=== PATIENT | male | born 1955 | race Caucasian/White ===

== ENCOUNTER → 2020-08-20 09:45 | Outpatient (BNVA) | payer SELFPAY | PROVIDERS: PCP Nurse Practitioner Family; Visit Provider Internal Medicine | DX: Z02.79 Encounter for issue of other medical certificate (principal) ==

== ENCOUNTER 2020-11-18 10:44 | Outpatient (REF) | payer OTHER, SELFPAY ==
[2020-11-18 12:31] LABS: Blood Urea Nitrogen 13 mg/dL (9-16); Estimated Glomerular Filt Rate > 60
== END 2020-11-18 10:45 | disposition home or self-care (01) ==
LOC: HO.LAB 10:44
PROVIDERS: Psychiatry & Neurology Neurology; PCP Internal Medicine; Visit Provider Internal Medicine
DX: I63.9 Cerebral infarction, unspecified (principal)
CPT/HCPCS: 36415; 82565; 84520

== ENCOUNTER 2020-12-09 07:52 | Outpatient (REF) | payer OTHER, SELFPAY ==
--- NOTE | ~2020-12-09 | CT_ITS ---
EXAMINATION: CT ANGIOGRAM NECK WITH CONTRAST CT ANGIOGRAM BRAIN WITH CONTRAST CLINICAL INFORMATION: Cerebral infarct. COMPARISON: None. TECHNIQUE: Test bolus sequences followed by intravenous administration 70 mL of Omnipaque 350. Helical imaging was performed in the axial plane from the thoracic inlet to the skull vertex. Delayed postcontrast imaging of the head was also performed. The data was processed at the senior cytotechnologist workstation for generation of MIP sequences. Angled MIPs and volume rendered reformatted images were also generated at an offline 3D workstation. Stenoses are assessed in accordance with NASCET criteria unless otherwise indicated. This CT examination was performed using dose optimization techniques as appropriate, variously including the following: *Automated exposure control *Adjustment of mA and/or kV according to patient size (this includes techniques or standardized protocols for targeted exams where dose is matched to indication/reason for exam; i.e. extremities or head) *Use of iterative reconstruction technique DLP: 2642 mGy-cm FINDINGS: Head CT: There is no intracranial hemorrhage, large acute infarction, or mass lesion. The ventricles are normal in size and configuration without evidence of hydrocephalus. No abnormal enhancement is seen on the postcontrast images. There is minimal paranasal sinus mucosal thickening. Neck CTA: There is a normal aortic arch with no significant stenosis of the great vessel origins. The common and internal carotid arteries are normal in course and caliber. Both vertebral arteries are widely patent throughout their extracranial cervical course. Head CTA: No intracranial aneurysm is seen. The intracranial internal carotid arteries appear normal. The anterior cerebral artery, anterior communicating artery, and middle cerebral arteries appear normal. The intradural vertebral arteries and basilar artery appear normal. The posterior cerebral arteries appear normal. Non-vascular findings: Prominent mandibular moni are noted. No there is no consolidation in the upper lungs. Mild multilevel degenerative changes are seen within the spine. CT/CT angio head neck IMPRESSION: CT head: No intracranial hemorrhage or large acute infarction. CTA neck: No hemodynamically significant stenosis in the major arteries of the neck. CTA head: No large vessel occlusion or significant stenosis within the intracranial circulation.
[2020-12-09] MEDS: iohexoL 350 MG/ML 100 ML INFUS..BTL 70 ML IV (09:23)
== END 2020-12-09 07:53 | disposition home or self-care (01) ==
LOC: HO.CT 07:52
PROVIDERS: Visit Provider Psychiatry & Neurology Neurology
DX: Z86.73 Personal history of transient ischemic attack (TIA), and cerebral infarction without residual deficits (principal)
CPT/HCPCS: 70496; 70498; Q9967

== ENCOUNTER → 2020-12-17 12:45 | Outpatient (REF) | payer OTHER, SELFPAY ==
--- NOTE | 2020-12-17 12:54 | ECG_ITS ---
Hook-up date: 2020-12-17 13:09:00 Duration: 47:59:00 Test Indications: cerebral infarct Medications: 331035 QRS complexes 300 Ventricular ectopics which represent <1 % of total QRS comp. 320 Supraventricular ectopics which represent <1 % of total QRS comp. * Paced QRS complexs which represent % of total QRS comp. VENTRICULAR ECTOPY 293 Isolated 0 Bigeminal Cycles 0 Couplets 1 Runs 7 Beats in Runs 7 Beats LONGEST at 128 BPM at 15:31:03 2020-12-18 7 Beats FASTEST at 128 BPM at 15:31:03 2020-12-18 SUPRAVENTRICULAR ECTOPY 315 Isolated 0 Couplets 2 Runs 6 Beats in Runs 3 Beats LONGEST at 89 BPM at 16:35:43 2020-12-18 3 Beats FASTEST at 89 BPM at 16:35:43 2020-12-18 HEART RATES 83 MIN at 12:49:52 2020-12-19 84 AVG 130 MAX at 13:29:12 2020-12-17 LONGEST RR 0.9520 secs at 00:10:54 2020-12-19 S-T LEVELS Channel 1 - 128 mm at 13:09:00 2020-12-17 - 128 mm at 13:09:00 2020-12-17 Channel 2 - 128 mm at 13:09:00 2020-12-17 - 128 mm at 13:09:00 2020-12-17 Channel 3 - 128 mm at 03:22:81 -- - 128 mm at 03:22:81 Basic rhythm Normal sinus rhythm No long pause or profound bradycardia Occasional Premature atrial complexes Occasional Premature ventricular complexes One 7 beat run of NSVT at 128 bpm Patient reported symptoms correlated with NSR Referred By: Gillian Cabrera Overread By: KIKE LONDON MD
== END ==
LOC: HO.CARD 12:45
PROVIDERS: PCP Internal Medicine; Visit Provider Internal Medicine
DX: I63.9 Cerebral infarction, unspecified (principal)
CPT/HCPCS: 93225; 93226

== ENCOUNTER → 2021-01-10 10:01 | Outpatient (REF) | payer OTHER, SELFPAY ==
--- NOTE | 2021-01-10 10:30 | CA_ITS ---
Transthoracic Echocardiogram Patient (Last, First, Middle): Good Mednia P Gender: Male Date of : 1955 Age: 65 Procedure Date: 01/10/2021 Procedure Type: Transthoracic Echocardiogram Location: OP Height: 167.64 cm Weight: 70.31 kg BSA: 1.79 m2 Heart Rate: bpm BP: 110 / 70 mmHg Helper Driver: DSGordo Referring MD: Roberto Cabrera MD Symptoms: I63.9 CEREBRAL INFARCT Study Quality: Fair ECG Rhythm: Sinus Conclusions: - The left ventricular systolic function is normal. The calculated ejection fraction is 64% by biplane method. - There is mild aortic valve stenosis. Cannot exclude bicuspid morphology. Findings Left Ventricle Normal left ventricular cavity size. The left ventricular systolic function is normal. The calculated ejection fraction is 64% by biplane method. There is no evidence of regional wall motion abnormalities. E/E prime ratio is between 8 and 15 consistent with indeterminate filling pressures. Evidence suggests grade I (mild) diastolic dysfunction. There is mild septal asymmetric hypertrophy. Right Ventricle Normal right ventricular cavity size and systolic function. Atria Both atria are normal in size. Aortic Valve There is mild calcification of the aortic valve. There is mild aortic valve stenosis. The peak aortic velocity is 2.29 m/s with a calculated peak gradient of 21 mmHg. The mean gradient is 14 mmHg. The aortic valve area is 1.43 cm2. There is no aortic valve regurgitation. Cannot exclude bicuspid morphology. Mitral Valve There is mild anterior mitral leaflet thickening. There is trace mitral valve regurgitation. There is no mitral valve stenosis. Pulmonic Valve The pulmonic valve was not well visualized. Tricuspid Valve Normal tricuspid valve structure. There is trace tricuspid valve regurgitation. The pulmonary artery systolic pressure is over estimated. Great Vessels The aortic annulus, sinuses of valsalva, and asc aorta are normal in size. Venous The inferior vena cava was not well visualized. Pericardium/Pleural There is no evidence of pericardial effusion. Prior Study Comparison No prior study available for comparison. Measurements 2D Linear Measurements IVSd: 1.20 0.6-0.9/0.6-1.0 cm LVIDd: 4.68 3.9-5.3/4.2-5.9 cm LVIDd Index: 2.61 2.4-3.2/2.2-3.1 cm/m2 LVIDs: 2.92 2.0-3.6 cm LVPWd: 0.90 0.7-1.1 cm Ao Root: 3.10 2.1-3.5 cm LA Diam: 3.10 2.7-3.8/3.0-4.0 cm LAIDs Index: 1.73 1.5-2.3 cm/m2 LV Mass: 217.24 67-162/88-224 g LV Mass Index: 121.36 43-95/49-115 g/m2 LVOT Diam: 2.40 3.0+(-)1.3 cm 2D Systolic Function EF 4C: 60.30 >55% EF 2C: 65.20 >55% EF BiP: 63.60 >55% Mitral Valve MV Pk E: 0.78 MV PK A: 1.00 MV Decel Time: 81.00 E/A: 0.80 E'Lateral: 7.62 E'Medial: 5.77 E/E' Med: 13.60 E/E' Lat: 10.30 PHT: 24.00 MVA PHT: 9.17 Decel Young: 9.67 Aortic Valve AoV Pk Mark: 2.29 AoV Mn Mark: 1.77 AoV VTI: 0.46 AoV Pk Grad: 21.00 Aov Mn Grad: 14.00 YUE Cont.VTI: 1.43 LVOT LVOT Pk Mark: 0.66 LVOT Mn Mark: 0.50 LVOT VTI: 0.15 LVOT Pk Grad: 2.00 LVOT Mn Grad: 1.00 LVOT Diam: 2.40 LVOT Area: 4.52 Diastolic Function MV Pk E: 0.78 MV Pk A: 1.00 E/A: 0.80 E'Medial: 5.77 E/E' Med: 13.60 E' Laterial: 7.62 E/E' Lat: 10.30 Right Ventricle TAPSE (mm): 2.04 Tricuspid Valve TR Pk Mark: 2.48 TR Pk Grad: 25.00 Great Vessels Aorta Ao Root-2D: 3.10 2.0-3.7 cm Ao Asc: 3.40 2.1-3.4 cm Updated in Other Vendor System with Status of Final Eliseo Francois MD electronically signed on 01/10/2021 4:47:27 PM with status of Final
== END ==
LOC: HO.CARD 10:01
PROVIDERS: PCP Internal Medicine; Visit Provider Internal Medicine
DX: I63.9 Cerebral infarction, unspecified (principal)
CPT/HCPCS: 93306

== ENCOUNTER → 2021-08-16 12:56 | Outpatient (BNVA) | payer SELFPAY | PROVIDERS: PCP Internal Medicine; Visit Provider Internal Medicine | DX: Z02.79 Encounter for issue of other medical certificate (principal) ==

== ENCOUNTER → 2022-08-16 08:55 | Outpatient (BNVA) | payer SELFPAY | PROVIDERS: PCP Internal Medicine; Visit Provider Physician Assistant Medical | DX: Z02.79 Encounter for issue of other medical certificate (principal) ==

== ENCOUNTER → 2023-08-09 09:38 | Outpatient (BNVA) | payer SELFPAY | PROVIDERS: PCP Internal Medicine; Visit Provider Physician Assistant Medical | DX: Z02.79 Encounter for issue of other medical certificate (principal) ==

== ENCOUNTER 2025-03-19 15:17 | Outpatient (AMB) | payer MEDICARE, MEDICAID, SELFPAY ==
[2025-03-19 15:37] VITALS: BP 120/86; PULSE 61; RESP 16; O2SAT 97; BMI 25.5
--- NOTE | 2025-03-19 15:37 | MHC.OFFVIS ---
Vital Signs 03/19/25 15:37 Height 5 ft 6 in Weight 158 lb BMI 25.5 BP 120/86 Blood Pressure Location Lt brachial Position Sitting Respiration 16 Pulse 61 Pulse Source Pulse Oximeter Pulse Oximetry (%) 97 Oxygen Delivery Method Room Air Intake Visit Reasons: Headache Lean Manufacturing Engineer Required: No Allergies No Known Allergies Allergy (Verified 03/19/25 15:38) HPI Comments Details: Good is a 69-year-old male patient with a past medical history of muscular dystrophy, hypertension, hyperlipidemia, and IL who is here today for evaluation of a new onset headache. According to the patient today, he had no significant prior headache history aside from very occasional mild tension-type headaches a few times per year at most. He began having a left-sided headache approximately a week and a half ago. His headaches has been constant but fluctuating in intensity with a proximally 3-7 days out of the last couple of weeks notable for more intense headaches reaching 9/10. His headaches are lasting a few hours without medication but tylenol resolves the pain within a half hour or so. Head pain is left frontal with some left sided occipital pain. The pain is hard and pounding and can be associated with occasional neck pain. He reports light sensitivity but he has been for some time. He does have sensitivity to sound when he has the headache as well. No nausea. Occasional dizziness but mild. He denies tinnitus or pulsatile sounds. His headaches are not better or worse in any specific position. About 1 month ago, prior to onset of his headaches, he had tingling to distal left upper extremity lasting 10min and resolving on its own. Aside from this, he has had no other focal neurological deficits such as vision changes, weakness, aphasia, or cognitive changes. Social: ETOH: Rare Tobacco: None Substance use: No Lives home with a partner Workup: 12/09/[address]/CT angio head neck IMPRESSION: CT head: No intracranial hemorrhage or large acute infarction. CTA neck: No hemodynamically significant stenosis in the major arteries of the neck. CTA head: No large vessel occlusion or significant stenosis within the intracranial circulation. [facility] Medical History Migraine Myocardial infarct, old Surgical History Stented coronary artery Social History Alcohol intake: former Patient Tobacco Use Status: Never used Tobacco Use of substances other than those prescribed or required for medical reasons: No Review of Systems Const All systems reviewed & are unremarkable except as noted in HPI and below Physical Exam Vital Signs: Last Vital Signs Pulse 61 03/19/25 15:37 Resp 16 03/19/25 15:37 BP 120/86 03/19/25 15:37 Pulse Ox 97 03/19/25 15:37 Oxygen Delivery Method Room Air 03/19/25 15:37 BMI result Body Mass Index 25.5 Const General: cooperative, healthy appearing, comfortable and no acute distress Nutritional Appearance: well nourished Orientation/consciousness: patient oriented x3 Limitations: no limitations HEENT Head: Yes normal to inspection and Yes normocephalic Eyes General: appearance abnormal, both eyes (Bilateral lid ptosis related to history of muscular dystrophy) Visual Guardado: normal visual guardado by confrontation Alignment and Position: alignment normal Periorbital: periorbital findings abnormal bilateral other (Ptosis) Eyelids: Yes eyelids normal Conjunctivae: conjunctivae normal Sclerae: sclerae normal Direct Ophthalmoscopy: normal light reflex, no papilledema and fundi normal bilaterally Back/Spine/Pelvis Other: Left trapezius trigger point and bilateral upper trapezius tightening. Left occipital notch tenderness. Neuro General: patient oriented x3, tone normal and deep tendon reflexes 2+ bilaterally Cranial nerves: Yes CN's II-XII intact bilaterally and Yes Facial sensation intact/muscles of mastication intact Cognition (Neuro): normal cognition Gait exam (Neuro): Normal gait present Motor exam (neuro): 5/5 motor strength present throughout and no tremor noted Sensory Exam: double simultaneous stimulation for sensation normal Romberg Test: Negative Pupils: Normal pupillary reactivity/response: bilateral Psych Appearance: grossly normal Mental Status: mental status grossly normal Speech and movement: Normal speech and movement present and Clear speech present Affect: normal affect Attitude: cooperative Thought process: Normal thought process present Thought content: Normal thought content present Insight: Good insight present (Psych) Judgement: Good judgement present (Psych) Assessment & Plan Assessment & Plan (1) New onset of headaches after age 50: Code(s): R51.9 - Headache, unspecified Category: Medical (2) Left-sided headache: Code(s): R51.9 - Headache, unspecified Category: Medical (3) Trigger point of left shoulder region: Code(s): M25.512 - Pain in left shoulder Category: Medical Plan Good is a 69-year-old male patient with a past medical history of muscular dystrophy, hypertension, hyperlipidemia, and IL who is here today for evaluation of a new onset headache. He does not have any significant prior headache history in his headaches has been constant since onset but fluctuating in intensity. His exam is reassuring and normal aside from a left-sided trapezius trigger point and left occipital notch tenderness. There was also some tenderness over the supratrochlear nerve. This headache might represent a new daily persistent headache however it does not yet fit criteria provided that it is only been going on for the past week and half. He does not have any nausea with his headaches but he does have both light and sound sensitivity raising question of migraine phenotype. He did have some left upper extremity tingling in the weeks prior to onset. This can happen with migraine but also can happen with muscle tension. We should also exclude vascular abnormalities and therefore I will obtain imaging studies including an MRI of the brain with and without contrast as well as an MRA. He does not have any autonomic features and therefore hemicrania continua is less likely however still should be included in the list of differentials. I will order imaging studies as noted above and below. I will also give him a trial of Nurtec. A samples given in office today. He will call me to update me on how this works for him and if he has significant benefit, I would classify this as a migraine-type headache and treat as such. He does however have a left trapezius trigger point and does not wish to be on any long-term medications. We could also try a left trapezius trigger point pending imaging being normal. -MRI with and without contrast and MRA given new onset PAYNE age>50 -Trial of nurtec - samples given (1 box given lot number:[id number], exp:) -Pt will call with an update on nurtec efficacy -If nurtec does not work could try muscle relaxer or left trigger point injection-patient prefers a ladder as he does not wish to be on daily preventive medication -follow-up interval to be determined once patient calls with an update Orders: Orders MR head/brain wo/w con Today R51.9 - Headache, unspecified MR angio head wo con Today R51.9 - Headache, unspecified Coding Level of Care Code New Pt Level 4 (66658) Diagnoses New onset of headaches after age 50 R51.9 Left-sided headache R51.9 Trigger point of left shoulder region M25.512
--- OUTSIDE RECORDS SUMMARY | 2025-03-19 20:33 | XMS_ITS | Encounter Summary ---
Author Organization [employer] Address [address] [place] [address] Care Team Providers Care Director Of Nuclear Medicine Name Role Phone Kerry Rodriguez NP Primary Care Provider UnavailGalo Jordan Unavailable Unavailable Sherin Goldberg DO Primary Care Provider [phone] Pcp, Dante Unassigned Primary Care Provider Juana boles Encounter Details Date Type Department Care Team (Late st Contact Info) Description 09/23/2024 Orders Only Dante [facility] Information Management [address] [place] [address] Kerry Rodriguez NP Social History Tobacco Use Types Packs/Day Years Used Date Smoking Tobacco: Never Passive Smoke Exposure: Never Smokeless Tobacco: Never Alcohol Use Standard Drinks/Week Comments Yes 0 (1 standard drink = 0.6 oz pure alcohol) 2 beers once in awhile, once monthly. Alcohol Answer Date Recorded How often do you have a drink containing alcohol ? 0 04/21/2024 How many drinks containing a lcohol do you have on a typical day when you are drinking? 0 04/21/2024 How often do you have six or more drinks on one occasion? 0 04/21/2024 Housing Stability Answer Date Recorded What is your housing situation today? I have maribel chappell 04/21/[address] you li ve. Do you have problems with any of the following? None of the above 04/21/2024 Food Insecurity Answer Date Recorded Within the past 12 months, y ou worried that your food would run out before you got money to buy more: Never True 04/21/2024 Within the past 12 months,th e food you bought just didn't last and you didn't have enough money to get more: Never True Transportation Answer Date Recorded In the past 12 months, has l ack of transportation kept you from medical appts, meetings, work or from getting things needed for daily living? No 04/21/2024 Intimate Partner Violence Answer Date R ecorded Within the last year, have y ou been afraid of your partner or ex-partner? 2 04/18/2023 Within the last year, have y ou been humiliated or emotionally abused in other ways by your partner or ex-partner? 2 Within the last year, have y ou been kicked, hit, slapped, or otherwise physically hurt by your partner or ex-partner? 2 04/18/2023 Within the last year, have y ou been raped or forced to have any kind of sexual activity by your partner or ex-partner? 2 04/18/2023 Utilities Answer Date Recorded In the past 12 months, has t he electric, gas, oil or water company threatened to shut off services in your home? No 04/21/2024 Depression Answer Date Recorded Patient Health Questionnaire-2 Score 0 04/21/2024 Internet Access Answer Date Recorded Internet Access Q1 Yes 04/21/2024 Internet Access Q2 Not on file 04/21/2024 Education Answer Date Recorded What is the highest level of school you have completed or the highest degree you have received? 12th grade 11/24/2022 Sex and Gender Information Value Date Recorded Sex Assigned at Male 09/08/2022 10:07 AM EDT Legal Sex Male 1:57 PM EST Gender Identity Male 09/08/2022 10:07 AM EDT Sexual Orientation Lesbian or Bell 09/08/2022 10 :07 AM EDT documented as of this encounter Plan of Treatment Not on file documented as of this encounter Procedures Procedure Name Priority Date/Time Associated Diagnosis Comments CARDIAC EVENT MONITOR Routine 08/19/2024 5:21 PM EDT documented in this encounter Results * Cardiac event monitor (08/19/2024 5:21 PM EDT) Kerry Rodriguez NP CV CARDIAC SERVICES PROCEDURES F inal Result documented in this encounter Visit Diagnoses Not on filedocumented in this encounter Care Teams Director Of Nuclear Medicine Relationship Specialty Start Date End Date Kerry Rodriguez NP PCP - General Family Medicine 05/03/22 02/15/25 Sherin Goldberg DO [address] [place] [address] PCP - General Lap Polisher 02/16/25 02/22/25 Dante Shirley Unassigned PCP - General Family Medicine 02/23/25 Galo Beltran Health Navigator 02/04/24 documented as of this encounter
--- OUTSIDE RECORDS SUMMARY | 2025-03-19 20:33 | XMS_ITS | Encounter Summary ---
Author Organization [employer] Address [address] [place] [address] Care Team Providers Care Director Of Quantitative Research Name Role Phone Galo Beltran Unavailable Unavailable Pcp, Dante Unassigned Primary Care Provider Juana navailalejandrina Encounter Details Date Type Department Care Team (Late st Contact Info) Description 03/15/2025 Results Follow-Up [facility] MEDICAL [address] [place] [address] Emilee Srinivasan MD [address] [place] [address] CBC auto differential, Comprehensive Metabolic Panel [[id number]], Vitamin B12, Additional followed-up results: 3 Social History Tobacco Use Types Packs/Day Years Used Date Smoking Tobacco: Never Passive Smoke Exposure: Never Smokeless Tobacco: Never Alcohol Use Standard Drinks/Week Comments Yes 0 (1 standard drink = 0.6 oz pure alcohol) 2 beers once in awhile, once monthly. Alcohol Answer Date Recorded How often do you have a drink containing alcohol ? 0 03/11/2025 How many drinks containing a lcohol do you have on a typical day when you are drinking? 0 03/11/2025 How often do you have six or more drinks on one occasion? 0 03/11/2025 Housing Stability Answer Date Recorded What is [...] or Bell 09/08/2022 10 :07 AM EDT Occupation Industry Job Start Date Job End Date Not on file Not on file Not on file Not on file documented as of this encounter Plan of Treatment Not on file documented as of this encounter Visit Diagnoses Not on filedocumented in this encounter Care Teams Director Of Quantitative Research Relationship Specialty Start Date End Date Dante Shirley Unassigned PCP - General Family Medicine 02/23/25 Galo Beltran Health Navigator 02/04/24 documented as of this encounter
--- OUTSIDE RECORDS SUMMARY | 2025-03-19 20:33 | XMS_ITS | Encounter Summary ---
Author Organization [employer] Address [address] [place] [address] Care Team Providers Care Extrusion Press Operator Name Role Phone Galo Beltran Unavailable Unavailable PcpDante Unassigned Primary Care Provider Juana shethailalejandrina Encounter Details Date Type Department Care Team (Late st Contact Info) Description 03/16/2025 Telephone [place] [facility] MED[facility] [address] [place] [address] PcpDante Unassigned Social History Tobacco Use Types Packs/Day Years [...] on file documented as of this encounter Miscellaneous Notes * Telephone Encounter - Francine Bueno - 03/17/2025 2:51 PM EST Refaxed neurology referral * Telephone Encounter - Safia Farnsworth LPN - 03/17/2025 12:44 PM EST Call placed to patient. Provider message given. Patient states his headaches are not as frequent and seem to resolve after taking apap. Patient states he has called twice to make an appointment with [place] neurology and each time they tell him they do not have the referral. Patient in agreement toschedule follow up appointment with new provider in office. Encounter to referrals to resend referral Encounter to HIM to obtain old neurology notes if available. Encounter to front desk person to schedule appointment with new provider. Encounter to provider as update. * Telephone Encounter - Sujata Mena LPN - 03/16/2025 3:47 PM EST Call placed to patient. LMOM to return call. * Telephone Encounter - Sujata Mena LPN - 03/16/2025 9:27 AM EST Images from the original note were not included. Emilee Srinivasan MD 03/15/25 5:17 PM Unsigned Note Please let pt know that his bloodwork showed mildly elevated liver tests, AST/ALT (52/52), other electrolytes, kidney function, B12 , ferriten levels normal. No anemia. ESR and CRP (nonspecific inflammation tests were normal) Platelets mildly low at 119 but stable from previous. Can you please see if pt is feeling any better, PAYNE better? Pt states he has seen neurology in [place], I didn't see any records, can you please try to obtain. I see a referral from 07/[address] Obregon , neurology. I would recommend pt make a follow up appointment [facility] to further review labs/liver tests etc, thanks documented in this encounter Plan of Treatment Not on file documented as of this encounter Visit Diagnoses Not on filedocumented in this encounter Care Teams Extrusion Press Operator Relationship Specialty Start Date End Date PcpDante Unassigned PCP - General Family Medicine 02/23/25 Galo Beltran Health Navigator 02/04/24 documented as of this encounter
--- OUTSIDE RECORDS SUMMARY | 2025-03-19 20:33 | XMS_ITS | Clinical Summary ---
Author Organization [facility] Address [address] [facility] [address] [place] [address] Phone Care Team Providers Care Insulator Tester Name Role Phone Emily Pickering MD Primary Care Provider [phone] Allergies Active Allergy Reactions Criticality Noted Date Comments Bee Pollen Sneezing Medium 09/08/2022 Seasonal hay fever Medications FERROUS GLUCONATE ORAL Take 324 mg by mouth. Active acyclovir (ZOVIRAX) 400 MG tablet as needed. 08/28/2022 Active amLODIPine (NORVASC) 10 MG tablet 01/04/2023 Active aspirin 81 MG EC tablet Take 81 mg by mouth. Active atorvastatin (LIPITOR) 40 MG tablet 11/24/2022 Active carvedilol (COREG) 6.25 MG tablet Take 6.25 mg by mouth. 06/28/2024 Active clopidogrel (PLAVIX) 75 mg tablet Take 75 mg by mouth. 06/29/2024 Active azelastine (OPTIVAR) 0.05 % ophthalmic solution 1 drop as needed. 03/31/2024 Active emtricitabine-te nofovir DF (TRUVADA) 200-300 mg per tablet Take 1 tablet by mouth. 06/26/2024 Active losartan (COZAAR) 25 MG tablet Take 25 mg by mouth. 06/28/2024 Active atorvastatin (LIPITOR) 80 MG tablet Take 80 mg by mouth. 06/28/2024 Active cyanocobalamin, vitamin B-12, 1000 MCG tablet Take 1,000 mcg by mouth daily. Active Active Problems Problem Noted Date Diagnosed Date Atherosclerosis of coronary artery 11/25/2024 Assessment & Plan (11/25/2024 10:07 AM EDT): He recently had PCI to the circumflex he needs to take Plavix for another approximately year, EF is normal Shortness of breath 07/25/2024 Palpitations 07/25/2024 Assessment & Plan (11/25/2024 10:06 AM EDT): He did have an MCT monitor not showing any significant atrial arrhythmias Assessment & Plan (07/25/2024 9:35 AM EDT): At this time we are going to order an echo and an MCT monitor to evaluate this for 1 week Ptosis 01/26/2023 01/26/2023 Overview (01/26/2023): Secondary to muscular dystrophy. Saw Dr. Cabrera in the past. Working with eye surgeon for next lid surgery. Allergic rhinitis 09/08/2022 01/26/2023 Benign essential hypertension 09/08/2022 Overview (01/26/2023): BP Readings from Last 4 Encounters: 11/24/22 120/72 11/17/22 106/80 09/08/22 134/80 Last Assessment & Plan: BP at goal. Will continue current treatment plan. Assessment & Plan (11/25/2024 10:06 AM EDT): Well-controlled to the guideline Assessment & Plan (07/25/2024 9:35 AM EDT): Well-controlled to the guidelines today Brain lesion 09/08/2022 01/26/2023 Overview (01/26/2023): MRI Brain w/o contrast 11/10/20: 0.5X 0.3 X0.4cm enhancing cotical lesion frontal lobe corresponding to an area of restricted diffusion on the diffusion weighted sequence. Per [facility] Dyslipidemia 09/08/2022 01/26/2023 Overview (01/26/2023): 09/18/22 ASCVD Risk 18.1%. Declined statin Rx in August, has thought about it and talked with family and is now agreeable. Reviewed medication, administration, and potential side effects. Will call clinic with any questions. Last Assessment & Plan: Discussed high cholesterol, ASCVD risk, and impact on health. Discussed statin medications, administration, and potential side effects. Mr. Medina is going to consider these medications and decide this week if he would like to start medication. Discussed lifestyle modifications, diet and exercise. Is agreeable to referral to nutrition. Is vegan. Will continue to discuss. Assessment & Plan (11/25/2024 10:06 AM EDT): Well-controlled at this time on Lipitor 80 Assessment & Plan (07/25/2024 9:36 AM EDT): Recently started on high intensity statin therapy LDL should be less than 70 mg/dL. His triglycerides should be less than 150 Herpes simplex infection of penis 09/08/2022 01/26/2023 Overview (01/26/2023): Last outbreak over 1 year ago. Has Acyclovir PRN from [facility]. On pre-exposure prophylaxis for HIV 09/08/2022 01/26/2023 Overview (01/26/2023): MSM, in open relationship. On Truvada x 4 years, gets labs Q 3 months, through [facility]. 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 Discussed food safety. Mr. Medina will get name of provider for eyelid surgery and will refer back to them for further evaluation and treatment. Seasonal allergies 09/08/2022 01/26/2023 Syphilis 09/08/2022 01/26/2023 Tinea versicolor 09/08/2022 01/26/2023 Overview (01/26/2023): Hypopigmented patches distributed throughout body. Has previous diagnosis of tinea versicolor, though unclear if this has been treated in the past. Will continue to discuss. Immunizations Immunization Administration Dates Next Due Hepatitis A, ped/adol, 2 dose 06/15/2009, 009 INFLUENZA, SPLIT VIRUS, TRIVALENT PF 02/17/2017 INFLUENZA, SPLIT VIRUS, TRIVALENT W/ PRESERVATIV E IM 01/28/2020,03/13/2016 Influenza High-Dose Quadrivalent Preservative Fr ee IM 02/04/2022 Influenza High-Dose Trivalent Preservative Free IM 02/02/2024 Influenza Quadrivalent Adjuvanted Preservative F ree IM 02/10/2023 Influenza Quadrivalent MDCK Preservative Free IM 02/26/2021 Influenza Quadrivalent MDCK w/Preservative IM Influenza Quadrivalent Preservative Free IM 12/29 Influenza Quadrivalent w/ Preservative IM 2014 Influenza Split (Incl. Purified Surface Antigen) 03/07/2013,01/16/2012 Pneumococcal conjugate PCV20 02/04/2022 Pneumococcal polysaccharide PPSV23 08/16/2021 Tdap 08/18/2011 Social History Tobacco Use Types Packs/Day Years Used Date Smoking Tobacco: Never Smokeless Tobacco: Never Tobacco Cessation:Counseling Given: Not Answered Education Answer Date Recorded Are you interested in more education? Not on uriel e 01/26/2023 Are you concerned about learning? Not on file 01/26/2023 No 01/26/2023 No 01/26/2023 Digital Access Answer Date Recorded No 01/26/2023 No 01/26/2023 Reliable internet access at home? Not on file 01/26/2023 Device with a working camera? Not on file Sex and Gender Information Value Date Recorded Sex Assigned at Not on file Legal Sex Male 9:53 PM EDT Gender Identity Not on file Sexual Orientation Not on file Last Filed Vital Signs Vital Sign Reading Time Taken Comments Blood Pressure 124/86 11/25/2024 9:51 AM EDT Pulse 60 11/25/2024 9:51 AM EDT Temperature 36.8 C (98.2 F) 02/13/2024 8:52 AM EDT Respiratory Rate 18 08/12/2024 10:21 AM EDT Oxygen Saturation 98% 11/25/2024 9:51 AM EDT Inhaled Oxygen Concentration - - Weight 70.3 kg (155 lb) 11/25/2024 9:51 AM EDT Height 175.3 cm (5' 9.02 ) 11/25/2024 9:51 AM ED T Body Mass Index 22.88 11/25/2024 9:51 AM EDT Plan of Treatment Upcoming Encounters Date Type Department Care Team (Late st Contact Info) Description 11/25/2024 Procedure Pass Echo Lab [address] [place] [address] 05/28/2025 10:30 AM EST Appointment [facility] [place] [address] Daniel Strong DO [address] [place] [address] [place] [id number] [email or web address] 06/08/2025 9:45 AM EST Office Visit [facility] [place] 3rd Floor, [address] [place] [address] Daniel Strong DO 22 [facility] [address] [place] [phone] [email or web address] Health Maintenance Due Date Last Done Comments HEPATITIS C SCREENING 1974 COLOGUARD 2001 COLONOSCOPY 2001 COLORECTAL CANCER SCREENING 2001 FIT TEST 2001 FOBT 2001 SIGMOIDOSCOPY 2001 VIRTUAL COLONOSCOPY 2001 ZOSTER VACCINES (1 of 2) 2006 Adult Td,Tdap Booster 08/17/2021 08/18/2011 INFLUENZA VACCINE (#1) 2024 4, 02/10/2023, 02/04/2022, Additional history exists COVID-19 VACCINE (2024- season) 2024 02/02/2024, 02/25/2023, 09/04/2021, Additional history exists BLOOD PRESSURE 05/28/2025 11/25/2024 CREATININE LEVEL 07/28/2025 07/28/2024 POTASSIUM LEVEL 07/28/2025 07/28/2024 DEPRESSION SCREENING 11/26/2025 11/26/2024 RSV VACCINE (1 - 1-dose 75+ series) 09/29/2031 HEPATITIS A VACCINES Aged Out 06/15/2009, 11/13/19 09 No longer eligible based on patient's age to complete this topic PNEUMOCOCCAL VACCINES (50+ years) Completed 02/04/2022, 08/16/2021 SMOKING STATUS SCREENING (Once After 26 Yrs) Completed 11/25/2024 HIB VACCINES Aged Out No longer eligi ble based on patient's age to complete this topic MENINGOCOCCAL VACCINES (ACWY) Aged Out No longer eligible based on patient's age to complete this topic MENINGOCOCCAL VACCINES (B) Aged Out N o longer eligible based on patient's age to complete this topic Medical Devices Not on file Procedures Procedure Name Priority Date/Time Associated Diagnosis Comments BASIC METABOLIC PANEL (BMP) Routine 07/28/2024 10:07 AM EDT Benign essential hypertension Shortness of breath Palpitations from Last 3 Months or Most Recently Relevant to Health Maintenance Results * (ABNORMAL) Basic metabolic panel (07/28/2024 10:07 AM EDT) SODIUM 142 133 - 146 mmol/L [facility] CHLORIDE 106 96 - 108 mmol/L [facility] POTASSIUM 5.0 3.3 - 5.1 mmol/L [facility] CO2 26 21 - 35 mmol/L [facility] BUN 14 6 - 19 mg/dL [facility] CREATININE 1.10 0.5 - 1.5 mg/dL [facility] GLUCOSE 69(L) 70 - 99 mg/dL [facility] CALCIUM 9.3 8.4 - 10.3 mg/dL [facility] EGFR 74 >59 mL/min/1.7 3m2 [facility] Comment:Estimated glomerular filtration rate calculated using the CKD-EPI refit equation. ANION GAP 15 10 - 20 mmol/L [facility] Blood 07/28/2024 10:0 7 AM EDT 07/28/2024 10:12 AM EDT us Daniel Strong DO LAB BLOOD BKR ORDERABLES Blanka l Result [facility] [address] [place] [address] from Last 3 Months or Most Recently Relevant to Health Maintenance Insurance HEALTH SAFETY NET PARTIAL MEDICARE PART [place] & [place] [id number] [facility] PREF VALUE MEDICARE REPLAC[place] MED[place] BL[facility] PARTIAL MEDICARE PART A & B Member Subscriber Plan / Payer (Ef fective 2021-Present) Name:Good Medina Member ID:[id number] Relation to Subscriber:Self Name:Good Medina Subscriber ID:[id number] Payer ID:[id number] Group ID:Not on file Type:Medicare Address: [facility] [employer] [facility] Book[facility]. [address] [place] [phone] [facility] MEDICARE REPLACEMENT [place] BLUE REPLACEMENT [facility] HEALTH SAFETY NET PARTIAL MEDICARE PART A & B [facility] PREF VALUE MEDICARE REPLACEMENT [facility] MEDICARE O BLUE REPLAC[facility] NET PARTIAL MEDICARE PART A & B [facility] PREF [facility] MEDICARE REPLACEMENT [place] BL[place] REPLACEMENT [facility] HEALTH SAFETY NET PARTIAL MEDICARE PART A & B [facility] MEDICARE REPLACEMENT [place] [facility] NET PARTIAL MEDICARE PART A & B [facility] MEDICARE REPLACEMENT [place] [facility] Care Teams Insulator Tester Relationship Specialty Start Date End Date Emily Pickering MD [address] [place] [address] [place] [address] [email or web address] PCP - General Pediatrics 07/29/24 Additional Source Comments The information contained in this document represents components of the legal health record. It is not the complete legal health record.[facility]"
--- OUTSIDE RECORDS SUMMARY | 2025-03-19 20:33 | XMS_ITS | Encounter Summary ---
Author Organization [employer] Address [address] [facility] 7t [place] [address] Care Team Providers Care Grades 7 And 8 Visiting Teacher Name Role Phone Kerry Rodriguez NP Primary Care Provider UnavailGalo Jordan Unavailable Unavailable Sherin Goldberg DO Primary Care Provider [phone] Pcp, Dante Unassigned Primary Care Provider Juana boles Encounter Details Date Type Department Care Team (Late st Contact Info) Description 08/02/2024 Orders Only Dante Health Information Management [address] [place] [address] Kerry Rodriguez NP Social History Tobacco Use [...] Date/Time Associated Diagnosis Comments BASIC METABOLIC PANEL Routine 07/28/2024 11:16 AM EDT LIPID PANEL, STANDARD Routine 07/28/2024 11:15 AM EDT documented in this encounter Results * Basic Metabolic Panel (07/28/2024 11:16 AM EDT) Blood Venous blood specimen / Unknown Kerry Rodriguez NP LAB BLOOD ORDERABLES Final Resul t * Lipid Panel, Standard (07/28/2024 11:15 AM EDT) Blood Venous blood specimen / Unknown Kerry Rodriguez NP LAB BLOOD ORDERABLES Final Resul t documented in this encounter Visit Diagnoses Not on filedocumented in this encounter Care Teams Grades 7 And 8 Visiting Teacher Relationship Specialty Start Date End Date Kerry Rodriguez NP PCP - General Family Medicine 05/03/22 02/15/25 Sherin Goldberg DO [address] [place] [address] PCP - General Outside Salesman 02/16/25 02/22/25 Dante Shirley Unassigned PCP - General Family Medicine 02/23/25 Galo Beltran Health Navigator 02/04/24 documented as of this encounter
--- OUTSIDE RECORDS SUMMARY | 2025-03-19 20:33 | XMS_ITS | Encounter Summary ---
Author Organization [employer] Address [address] [facility] 7t [place] [address] Care Team Providers Care Aquaculture Farm Manager Name Role Phone Kerry Rodriguez NP Primary Care Provider UnavailGalo Jordan Unavailable Unavailable Sherin Goldberg DO Primary Care Provider [phone] Pcp, Dante Unassigned Primary Care Provider Juana boles Encounter Details Date Type Department Care Team (Late st Contact Info) Description 06/30/2024 Orders Only Dante Health Information Management [address] [place] [address] Kerry Rodriguez NP Social History Tobacco Use [...] Procedure Name Priority Date/Time Associated Diagnosis Comments LIPID PANEL, STANDARD Routine 06/27/2024 9:01 AM EST HEMOGLOBIN A1C Routine 06/27/2024 9:00 AM EST TRANSTHORACIC ECHO (TTE) COMPLETE Routine 06/27/2024 8:59 AM EST HM HIV 1/2 ANTIGEN AND ANTIBODY Routine 06/26/2024 9:01 AM EST HM HEPATITIS C ANTIBODY Routine 06/26/19 9:[address] ANGIOGRAM ABDOMEN W CONTRAST Routine 06/26/2024 8:[address] ANGIOGRAM CHEST INTERPRETATION Routine 06/26/2024 8:57 AM EST ECG 12-LEAD Routine 06/26/2024 8:56 AM EST documented in this encounter Results * Lipid Panel, Standard (06/27/2024 9:01 AM EST) Blood Venous blood specimen / Unknown us Kerry Rodriguez NP LAB BLOOD ORDERABLES Final Resul t * Hemoglobin A1c (06/27/2024 9:00 AM EST) Blood Venous blood specimen / Unknown Result Obie Rodriguez NP LAB BLOOD ORDERABLES Final Resul t * Transthoracic echo (TTE) complete (06/27/2024 8:59 AM EST) Result Obie Rodriguez NP CV ECHO PROCEDURES Final Result * HM HIV 1/2 Antigen and Antibody (06/26/2024 9:01 AM EST) Result Obie Rodriguez NP HEALTH MAINTENANCE Final Result * HM Hepatitis C Antibody (06/26/2024 9:01 AM EST) Blood Result Obie Rodriguez NP HEALTH MAINTENANCE Final Result * CT ANGIOGRAM ABDOMEN W CONTRAST (06/26/2024 8:58 AM EST) Anatomical Region Laterality Modality Computed Tomogra phy Result Obie Rodriguez NP IMG CT PROCEDURES Final Result * CT angiogram chest interpretation (06/26/2024 8:57 AM EST) Anatomical Region Laterality Modality Computed Tomogra phy Result Obie Rodriguez NP IMG CT PROCEDURES Final Result * ECG 12 lead (06/26/2024 8:56 AM EST) Result Obie Rodriguez NP ECG ORDERABLES Final Result documented in this encounter Visit Diagnoses Not on filedocumented in this encounter Care Teams Aquaculture Farm Manager Relationship Specialty Start Date End Date Kerry Rodriguez NP PCP - General Family Medicine 05/03/22 02/15/25 Sherin Goldberg DO [address] [place] [address] PCP - General Rectification Printer 02/16/25 02/22/25 Dante Shirley Unassigned PCP - General Family Medicine 02/23/25 Galo Beltran Health Navigator 02/04/24 documented as of this encounter
--- OUTSIDE RECORDS SUMMARY | 2025-03-19 20:33 | XMS_ITS | Encounter Summary ---
Author Organization [facility] Address [address] [place] [address] Phone Care Team Providers Care Armored Car Guard Name Role Phone Kerry Rodriguez NP Primary Care Provider [phone] Emily Pickering MD Primary Care Provider [phone] Encounter Details Date Type Department Care Team (Late st Contact Info) Description 07/25/2024 Procedure Pass Echo Lab [address] [place] [address] Social History Tobacco Use Types Packs/Day Years Used Date Smoking Tobacco: Never Smokeless Tobacco: Never Education Answer Date Recorded Are you interested [...] on file Sexual Orientation Not on file documented as of this encounter Plan of Treatment Upcoming Encounters Date Type Department Care Team (Late st Contact Info) Description 11/25/2024 Procedure Pass Echo Lab [address] [place] [address] 05/28/2025 10:30 AM EST Appointment Echo Lab [address] [place] [address] Daniel Strong, DO [address] [facility] [address] [place] [address] 06/08/2025 9:45 AM EST Office Visit [facility] [address] [facility] 3rd Floor, [address] [place], [place] [phone] Daniel Strong DO [address] [facility] [address] [place] [address] documented as of this encounter Visit Diagnoses Not on filedocumented in this encounter Additional Health Concerns Assessment Noted Time PHQ-9 Depression Total Score: 9 08/13/19 10:22 AM EDT documented as of this encounter Care Teams Armored Car Guard Relationship Specialty Start Date End Date Kerry Rodriguez NP PCP - General Nurse Practitioner 07/25/24 07/28/24 Emily Pickering MD [address] [place] [id number] PCP - General Pediatrics 07/29/24 documented as of this encounter Additional Source Comments The information contained in this document represents components of the legal health record. It is not the complete legal health record.[facility]
--- OUTSIDE RECORDS SUMMARY | 2025-03-19 20:33 | XMS_ITS | Clinical Summary ---
Author Organization [facility] Address [address] [facility] 7 [place] [address] Care Team Providers Care Blue Prints Trimmer Name Role Phone Galo Beltran Unavailable Unavailable PcpDante Unassigned Primary Care Provider U navailable Allergies Active Allergy Reactions Criticality Noted Date Comments Pollen Extract Runny nose Medium 09/08/2022 Seasonal hay fever Medications Multiple Vitamin (multivitamin) tablet Take 1 tablet by mouth in the morning. Active cyanocobalamin (Vitamin B-12) 100 MCG tablet Take 100 mcg by mouth in the morning. Active aspirin 81 MG EC tablet Take 81 mg by mouth in the morning. Active azelastine (Optivar) 0.05 % ophthalmic solutionIndication s:Allergic conjunctivitis of both eyes Administer 1 drop into both eyes 2 times daily. 6 mL 6 03/31/20 24 025 Active clopidogrel (Plavix) 75 MG tablet Take 1 tablet (75 mg) by mouth Once per day. 90 tablet 3 07/29/19 25 Active carvedilol (Coreg) 6.25 MG tablet Take 1 tablet (6.25 mg) by mouth with breakfast and with evening meal. 180 tablet 3 07/29/19 25 Active atorvastatin (Lipitor) 80 MG tablet Take 1 tablet (80 mg) by mouth Once per day. 90 tablet 3 07/29/19 25 Active losartan (Cozaar) 25 MG tablet Take 0.5 tablets (12.5 mg) by mouth Once per day. 90 tablet 3 07/29/19 25 Active Descovy 200-25 MG tablet Take 1 tablet by mouth Once per day. 02/10/20 25 Active emtricitabine-teno fovir DF (Truvada) 200-300 MG tablet Take 1 tablet by mouth in the morning. 05/27/19 23 025 Discontin ued(Thera py completed ) acyclovir (Zovirax) 400 MG tablet PRN 08/29/19 025 Discontin ued(Thera py completed ) ferrous gluconate (Fergon) 324 (38 Fe) MG tablet Take 324 mg by mouth with breakfast. 1/2 tablet with food 025 Discontin ued(Thera py completed ) Active Problems Problem Noted Date Diagnosed Date Anterior ST segment depression 07/01/2024 Hospital discharge follow-up 07/01/2024 Finger pain, right 11/14/2023 Overview (11/14/2023): Decreased ROM. Injured a month ago - crushed between 2 pieces of wood. Improving pain but does not have full motion back. Declines finger XR. Advised this may lead to incomplete healing with long lasting effect on ROM/pain. Mr. Medina aware of this and declines any intervention at this time. History of MRSA infection 05/24/2023 Headache above the eye region 03/07/2023 Overview (03/07/2023): Etiology unclear. Trial off Atorvastatin to see if headache improves, x 1 month. Will increase water intake. Will keep headache log. Will follow up in 1 month in person for neuro exam. Ptosis 01/26/2023 Overview (04/18/2023): Secondary to muscular dystrophy. Saw Dr. Cabrera in the past. Working with eye surgeon for next lid surgery. Concerned about cost of copay. Routine general medical exam ination at a health care facility 11/24/2022 Overview (11/24/2022): CPE done 11/24/22 HEALTH CARE MAINTENANCE: Colonoscopy (age 45-75): Done over 10 years ago, done through [facility]. Referral done 11/24/22. AAA Screen (age 65-75, ever smoked): Never smoker. LDCT (smoke >30 pack year, age 55-80): Never smoker. DEXA (age 70): Age 67. PSA: Never been done, ordered 11/24/22. IMMUNIZATIONS: Tetanus (every 10 years): Last done 2011, due today. Unable to be done in clinic today, will return to clinic at his convenience to have done. Pneumococcal (age 65): Had x 2. Shingrix (age 50): Never had done. Will go to the pharmacy to have done. COVID: Moderna x 4. Assessment & Plan (11/24/2022 1:38 PM EDT): All HCM and immunizations reviewed and discussed. Prostate cancer screening 11/24/2022 Overview (11/24/2022): Never had PSA screen done. Discussed risks/benefits/limitations. Agreeable to have done. Microcytic anemia 11/24/2022 Overview (11/14/2023): Lab Results Component Value Date WBC 3.9 (L) 09/08/2022 HGB 13.4 (L) 09/08/2022 HCT 44.1 09/08/2022 MCV 80.9 09/08/2022 PLT 213 09/08/2022 Due for repeat labs. Taking OTC Iron supplement. Assessment & Plan (11/24/2022 1:31 PM EDT): Hx of GERARDO. Taking OTC iron - was afraid of side effects of higher dose iron. Will repeat labs. Screening for colon cancer 11/24/2022 Overview (11/24/2022): Done over 10 years ago. Agreeable to GI referral. 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 Has Acyclovir PRN from [facility]. Allergic rhinitis 09/08/2022 Brain lesion 09/08/2022 Overview (09/08/2022): MRI Brain w/o contrast 11/10/20: 0.5X 0.3 X0.4cm enhancing cotical lesion frontal lobe corresponding to an area of restricted diffusion on the diffusion weighted sequence. Per [facility] Dyslipidemia 09/08/2022 Overview (11/14/2023): 09/18/22 ASCVD Risk 18.1%. Started Atorvastatin - had headaches while on medication. Resolved after stopping statin. Focused on lifestyle modifications. Will repeat labs. Assessment & Plan (09/18/2022 5:26 PM EDT): Discussed high cholesterol, ASCVD risk, and impact on health. Discussed statin medications, administration, and potential side effects. Mr. Medina is going to consider these medications and decide this week if he would like to start medication. Discussed lifestyle modifications, diet and exercise. Is agreeable to referral to nutrition. Is vegan. Will continue to discuss. Benign essential hypertension 09/08/2022 Overview (11/14/2023): BP Readings from Last 4 Encounters: 11/14/23 128/80 05/24/23 136/87 11/24/22 120/72 11/17/22 106/80 BP at goal. Will continue current treatment plan. Assessment & Plan (11/24/2022 1:31 PM EDT): BP at goal. Will continue current treatment plan. Assessment & Plan (09/08/2022 12:45 PM EDT): Bp slightly above goal on Amlodipine 10mg. Will continue current treatment plan and determine need for additional agent at next visit. 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 Eats soft food, eats carefully. Engaged with nutrition - is going to start making his own smoothies. Has not been seen by neurology recently. 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 Mr. Medina will call his neurologist and schedule appointment. Assessment & Plan (09/08/2022 12:47 PM EDT): Stable. Discussed food safety. Mr. Medina will get name of provider for eyelid surgery and will refer back to them for further evaluation and treatment. On pre-exposure prophylaxis for HIV 09/08/2022 Overview (09/08/2022): MSM, in open relationship. On Truvada x 4 years, gets labs Q 3 months, through [facility]. Tinea versicolor 09/08/2022 Overview (11/14/2023): Hypopigmented patches distributed throughout body. Has previous diagnosis of tinea versicolor, has been seen by dermatology. Did not want treatment due to potential side effects from topical cream. Discussed again today - advised to wear sunscreen and contact clinic if desires treatment. Syphilis 09/08/2022 BMI 25.0-25.9,adult 09/08/2022 Overview (09/18/2022): Diet and exercise counseling done 09/18/22. Assessment & Plan (09/18/2022 5:23 PM EDT): I recommend incorporating a variety of fruits, vegetables, whole grains, lean proteins, and healthy fats into your diet. It's important to limit consumption of processed foods, added sugars, and unhealthy fats. By making small but sustainable changes to your diet, you can improve your overall health and reduce the risk of chronic disease. I encourage you to keep a food diary to track your intake and identify areas for improvement. Additionally, focusing on portion sizes, mindful eating, and overcoming barriers to healthy eating can help you achieve your dietary goals. Incorporating both aerobic and strength-training exercises into your routine can help you burn calories, build muscle, and improve cardiovascular health. Aim for at least 150 minutes of moderate-intensity aerobic exercise per week, such as brisk walking or cycling, and two days of strength-training exercises targeting major muscle groups. It's important to find an exercise routine that you enjoy and can stick with long-term. Start slowly and gradually increase intensity and duration over time. Additionally, incorporating physical activity into your daily routine, such as taking the stairs instead of the elevator or walking instead of driving for short trips, can help increase overall activity levels. Assessment & Plan (09/08/2022 12:45 PM EDT): Will get screening labs. Resolved Problems Problem Noted Date Diagnosed Date Resolved Date Cellulitis and abscess of left leg 05/24/2023 11/14/2023 Encounters Date Type Department Care Team Description 03/16/[address] [id number] Pcp, [place] Unassigned 03/15/2025 Results Follow-Up [address] [address] Emilee Srinivasan MD CBC auto differential, Comprehensive Metabolic Panel [[id number]], Vitamin B12, Additional followed-up results: 3 03/11/2025 12:30 PM EST Office Visit [address] [address] Emilee Srinivasan MD Other headache syndrome (Primary Dx); Low ferritin 03/11/2025 Travel 01/16/[address] [address] Kerry Rodriguez NP Appointment Request from Last 3 Months Immunizations Immunization Administration Dates Next Due Hep A, ped/adol, 2 dose 06/15/2009,11/12/2008 INFLUENZA INJECTABLE QUADRIV ALANT CCIIV4 MDCK Multi-dose vial 02/01/2019 Influenza High-dose Quadriva lent Preservative Free 02/04/2022 Influenza Injectable Quadriv alant Preservative Free IIV4 MDCK 02/26/2021 Influenza Quadrivalent Adjuvanted 02/10/2023 Influenza injectable quadriv alent IIV4 with preservative 02/08/2015 Influenza injectable quadriv alent preservative free 01/09/2020 Influenza, IIV3, injectable 01/28/2020, 6,02/12/2014 Influenza, Split (incl. clifton fied surface antigen) 03/07/2013,01/16/2012 Influenza, seasonal, injecta ble, preservative free 02/17/2017 Pneumococcal Conjugate PCV 20 02/04/2022 Pneumococcal Polysaccharide PPSV23 08/16/2021 Tdap 08/18/2011 Family History Medical History Relation Name Comments COPD Brother 1 substance abuse Brother 1 substance abuse Brother 2 COPD Father Heart attack Father Hypertension Father Transient ischemic attack Father ALS Mother Glaucoma Mother Heart attack Mother Hyperlipidemia Mother Hypertension Mother Stroke Mother oculopharyngeal muscular dystrophy Mother Diabetes Sister Heart attack Sister Hyperlipidemia Sister Hypertension Sister Relation Name Status Comments Brother 1 Brother 2 Alive Father Maternal Grandfather Maternal Grandmother Mother Paternal Grandfather Paternal Grandmother Sister Social History Tobacco Use Types Packs/Day Years Used Date Smoking Tobacco: Never Passive Smoke Exposure: Never Smokeless Tobacco: Never Tobacco Cessation:Counseling Given: Not Answered Alcohol Use Standard Drinks/Week Comments Yes 0 [...] file Not on file Not on file Last Filed Vital Signs Vital Sign Reading Time Taken Comments Blood Pressure 121/74 03/11/2025 12:40 PM EST Pulse 67 03/11/2025 12:40 PM EST Temperature 36.5 C (97.7 F) 03/11/2025 12:40 PM EST Respiratory Rate 16 04/28/2024 11:51 AM EST Oxygen Saturation 94% 03/11/2025 12:40 PM EST Inhaled Oxygen Concentration - - Weight 68 kg (149 lb 14.4 oz) 03/11/2025 12:40 P M EST Height 167.6 cm (5' 6 ) 03/11/2025 12:40 PM EST Body Mass Index 24.19 03/11/2025 12:40 PM EST Plan of Treatment Health Maintenance Due Date Last Done Comments Anal Pap 1956 CT Colonography 1956 Colonoscopy 1955 Colorectal Cancer Screening 1955 FIT DNA/Cologuard 1956 FIT 1956 FOBT 1955 Sigmoidoscopy 1955 Hepatitis A Vaccines (1 of 2 - Risk 2-dose series) 09/29/1975 06/15/2009, 11/12/2008 RSV Patients and Patients Aged 60 years or older (1 - Risk 50-74 years 1-dose series) 2006 Zoster Vaccines (1 of 2) 2006 Hepatitis B Vaccines (1 of 3 - Risk 3-dose series) 2016 DTaP/Tdap/Td Vaccines (2 - Td or Tdap) 08/17/2021 08/18/2011 COVID-19 Vaccine ( season) 2024 02/02/2024, 02/25/2023, 09/04/2021, Additional history exists Depression Screening 04/21/2025 04/21/2024, 04/21/20 SDOH Screening 04/21/2025 04/21/2024 Alcohol/Substance Use Screening 03/11/2026 03/11/2025 Tobacco Screening 03/11/2026 03/11/2025 Lipid Panel 07/28/2029 07/28/2024, 06/01, 11/14/2023, Additional history exists Pneumococcal Vaccine: 50+ Years Completed 02/04/2022, 08/16/2021 Hepatitis C Screening Completed 06/26/2024, 024 Influenza Vaccine Completed 01/01/2025, , 02/10/2023, Additional history exists HIB Vaccines Aged Out No longer eligi ble based on patient's age to complete this topic HPV Vaccines Aged Out No longer eligi ble based on patient's age to complete this topic IPV Vaccines Aged Out No longer eligi ble based on patient's age to complete this topic Meningococcal B Vaccine Aged Out No l onger eligible based on patient's age to complete this topic Meningococcal Vaccine Aged Out No elvia flavia eligible based on patient's age to complete this topic RSV under 20 months Aged Out No longe r eligible based on patient's age to complete this topic Rotavirus Vaccines Aged Out No longer eligible based on patient's age to complete this topic Procedures Procedure Name Priority Date/Time Associated Diagnosis Comments IRON, TIBC AND FERRITIN PANEL Routine 03/11/2025 3:32 PM EST Other headache syndrome Low ferritin C-REACTIVE PROTEIN Routine 03/11/2025 3: 32 PM EST Other headache syndrome SED RATE BY MODIFIED WESTERGREN Routine 03/11/2025 3:32 PM EST Other headache syndrome VITAMIN B12 Routine 03/11/2025 3:32 PM EST Other headache syndrome COMPREHENSIVE METABOLIC PANEL Routine 03/11/2025 3:32 PM EST Other headache syndrome CBC WITH AUTO DIFFERENTIAL Routine 03/11/2025 3:32 PM EST Other headache syndrome LIPID PANEL, STANDARD Routine 07/28/2024 11:15 AM EDT HM HEPATITIS C ANTIBODY Routine 06/26/2024 9:01 AM EST from Last 3 Months or Most Recently Relevant to Health Maintenance Results * Iron, TIBC And Ferritin Panel [ [id number]] (03/11/2025 3:32 PM EST) Iron Binding Capacity 274 250 - 450 ug/dL [facility] UIBC 185 111 - 343 ug/dL [facility] Iron, Total 89 38 - 169 ug/dL [facility] % Saturation 32 15 - 55 % [facility] Ferritin 122 30 - 400 ng/mL [facility] Blood 03/11/2025 3:32 PM EST 03/11/2025 Narrative Resulting Agency Comment Performed at: 01 - [facility] [address], [address], [place] [id number] Windows Administrator: Paul Pop MD, Phone: [phone] us Emilee Srinivasan MD LAB BLOOD ORDERABLES Final Resul t [facility] [address] [place] [address] * (ABNORMAL) CBC auto differential (03/11/2025 3:32 PM EST) White Blood Cell Count 4.8 3.4 - 10.8 x10E3/uL [facility] Red Blood Cell Count 5.20 4.14 - 5.80 x10E6/uL [facility] Hemoglobin 16.1 13.0 - 17.7 g/dL [facility] Hematocrit 48.9 37.5 - 51.0 % [facility] MCV 94 79 - 97 fL [facility] MCH 31.0 26.6 - 33.0 pg [facility] MCHC 32.9 31.5 - 35.7 g/dL [facility] RDW 12.6 11.6 - 15.4 % [facility] Platelet Count 119(L) 150 - 450 x10E3/uL [facility] Neutrophils 70 Not Estab. % [facility] Lymphocytes 15 Not Estab. % [facility] Monocytes 9 Not Estab. % [facility] Eosinophils 6 Not Estab. % [facility] Basophils 0 Not Estab. % [facility] Absolute Neutrophils 3.3 1.4 - 7.0 x10E3/uL [facility] Absolute Lymphocytes 0.7 0.7 - 3.1 x10E3/uL [facility] Absolute Monocytes 0.4 0.1 - 0.9 x10E3/uL [facility] Absolute Eosinophils 0.3 0.0 - 0.4 x10E3/uL [facility] Absolute Basophils 0.0 0.0 - 0.2 x10E3/uL [facility] Immature Granulocytes 0 Not Estab. % [facility] Immature Grans (Abs) 0.0 0.0 - 0.1 x10E3/uL [facility] Blood Venous blood specimen / Unknown 03/11/2025 3:32 PM EST 03/11/2025 Narrative Resulting Agency Comment Performed at: 01 - [facility] [address] [place], [place] [id number] Windows Administrator: Chantale Patino MD, Phone: [phone] us Emilee Srinivasan MD LAB BLOOD ORDERABLES Final Resul t [facility] [address] [place] [address] * Sed Rate by Modified Laurent (03/11/2025 3:32 PM EST) Sed Rate By Modified Westergren 2 0 - 30 mm/hr [facility] Blood Venous blood specimen / Unknown 03/11/2025 3:32 PM EST 03/11/2025 Narrative Resulting Agency Comment Performed at: 01 - [facility] [address] [place], [place] [id number] Windows Administrator: Chantale Patino MD, Phone: [phone] Emilee Srinivasan MD LAB BLOOD ORDERABLES Final Resul t Performing Organization Address City/[facility]/ZIP Co de Phone Number [facility] [address] [place] [address] * C-reactive Protein [[id number]] (03/11/2025 3:32 PM EST) Pathologist [facility] C-Reactive Protein <3 0 - 10 mg/L [facility] Blood Venous blood specimen / Unknown 03/11/2025 3:32 PM EST 03/11/2025 Narrative Resulting Agency Comment Performed at: - [facility] [address], [address], [place], [place] [id number] Windows Administrator: Paul Pop MD, Phone: [phone] us Emilee Srinivasan MD LAB BLOOD ORDERABLES Final Resul t Performing Organization Address City/[facility] Co de Phone Number [facility] [address] [place] [address] * Vitamin B12 (03/11/2025 3:32 PM EST) Pathologist [facility] Vitamin B12 576 232 - 1,245 pg/mL [facility] Blood Venous blood specimen / Unknown 03/11/2025 3:32 PM EST 03/11/2025 Narrative Resulting Agency Comment Performed at: 01 - [facility] [address], [address], [place], [place] [id number] Windows Administrator: Paul Pop MD, Phone: [phone] us Emilee Srinivasan MD LAB BLOOD ORDERABLES Final Resul t [facility] [address] [place] [address] * (ABNORMAL) Comprehensive Metabolic Panel [[id number]] (03/11/2025 3:32 PM EST) Glucose 79 70 - 99 mg/dL [facility] Urea Nitrogen (BUN) 19 8 - 27 mg/dL [facility] Creatinine, Serum 0.97 0.76 - 1.27 mg/dL [facility] eGFR 85 >59 mL/min/1.7 3 [facility] BUN/Creatinine Ratio 20 10 - 24 [facility] Sodium 140 134 - 144 mmol/L [facility] Potassium 4.9 3.5 - 5.2 mmol/L [facility] Chloride 104 96 - 106 mmol/L [facility] Anion Gap 7.0(L) 10.0 - 18.0 mmol/L [facility] Carbon Dioxide 29 20 - 29 mmol/L [facility] Calcium 9.4 8.6 - 10.2 mg/dL [facility] Protein, Total 6.5 6.0 - 8.5 g/dL [facility] Albumin 4.3 3.9 - 4.9 g/dL [facility] Globulin 2.2 1.5 - 4.5 g/dL [facility] Bilirubin, Total 1.1 0.0 - 1.2 mg/dL [facility] Alkaline Phosphatase 79 47 - 123 IU/L [facility] AST 52(H) 0 - 40 IU/L [facility] ALT 52(H) 0 - 44 IU/L [facility] Blood Venous blood specimen / Unknown 03/11/2025 3:32 PM EST 03/11/2025 Narrative Resulting Agency Comment Performed at: 01 - [facility] [address], [address], [place] [id number] Windows Administrator: Paul Pop MD, Phone: [phone] Emilee Srinivasan MD LAB BLOOD ORDERABLES Final Resul t [facility] [address] [place] [address] * Lipid Panel, Standard (07/28/2024 11:15 AM EDT) Blood Venous blood specimen / Unknown Kerry Rodriguez NP LAB BLOOD ORDERABLES Final Resul t * HM Hepatitis C Antibody (06/26/2024 9:01 AM EST) Blood Kerry Rodriguez NP HEALTH MAINTENANCE Final Result from Last 3 Months or Most Recently Relevant to Health Maintenance [place] [address] [place] [address] ADV Member Subscriber Plan / Payer (Ef fective 2022-Present) Name:Good Medina Relation to Subscriber:Self Name:Good Medina Payer ID:Not on file Group ID:[id number] Type:Not on file Address: [address] ADV HMO Care Teams Blue Prints Trimmer Relationship Specialty Start Date End Date Dante Shirley Unassigned PCP - General Family Medicine 02/23/25 Galo Beltran Health Navigator 02/04/24
--- OUTSIDE RECORDS SUMMARY | 2025-03-19 20:33 | XMS_ITS | Encounter Summary ---
Author Organization [employer] Address [address] [facility] [address] [place] [address] Care Team Providers Care Red Leader Name Role Phone Kerry Rodriguez NP Primary Care Provider UnavailGalo Jordan Unavailable Unavailable Sherin Goldberg DO Primary Care Provider Pcp, Dante Unassigned Primary Care Provider Juana boles Encounter Details Date Type Department Care Team (Late st Contact Info) Description 08/27/2024 Orders Only Dante Health Information Management [address] [place] [address] Kerry Rodriguez NP Social History Tobacco Use [...] Procedure Name Priority Date/Time Associated Diagnosis Comments TRANSTHORACIC ECHO (TTE) COMPLETE Routine 08/26/2024 3:32 PM EDT documented in this encounter Results * Transthoracic echo (TTE) complete (08/26/2024 3:32 PM EDT) Kerry Rodriguez NP CV ECHO PROCEDURES Final Result documented in this encounter Visit Diagnoses Not on filedocumented in this encounter Care Teams Red Leader Relationship Specialty Start Date End Date Kerry Rodriguez NP PCP - General Family Medicine 05/03/22 02/15/25 Sherin Goldberg DO [address] [place] [address] PCP - General Moisture Meter Reader 02/16/25 02/22/25 Dante Shirley Unassigned PCP - General Family Medicine 02/23/25 Galo Beltran Health Navigator 02/04/24 documented as of this encounter
== END 2025-03-19 16:29 | disposition home or self-care (01) ==
LOC: HO.HSM 15:17
PROVIDERS: PCP Internal Medicine; Visit Provider Nurse Practitioner
DX: R51.9 Headache, unspecified (principal); M25.512 Pain in left shoulder
CPT/HCPCS: 99204

== ENCOUNTER → 2025-03-19 15:17 | Outpatient (BNVA) | payer MEDICARE, SELFPAY | PROVIDERS: PCP Internal Medicine; Visit Provider Nurse Practitioner | DX: M25.512 Pain in left shoulder (principal); R51.9 Headache, unspecified | CPT/HCPCS: 99202 ==